=== PATIENT | female | born 1945 | race Caucasian/White ===

== ENCOUNTER 2020-02-21 09:21 | Emergency (ER) | payer MEDICARE ==
--- NOTE | 2020-02-21 10:38 | ER Document Report ---
ED Eye Complaint - General Chief Complaint: Eye Problem Stated Complaint: EYE PAIN Time Seen by Provider: 02/21/20 10:10 Mode of Arrival: Ambulatory Information source: Patient - HPI Notes: Patient complains of left eye pain. She states she woke up this morning and noticed that her eye was swollen and tender. She states is mainly the upper lid. She also states that her face feels "hot". She is noticed she has some blurry vision in the left eye as well. She denies any known injury. No fevers. She has had some yellow-green discharge from this eye as well today. The pain is constant. It is mild to moderate. It is a burning stinging sensation. It radiates over to the medial aspect of her face near her nose. It is worse if touched and better if left alone. - Related Data Allergies/Adverse Reactions: codeine Allergy (Verified 02/21/20 09:32) Home Medications: tramadol prn Past Medical History - General Information source: Patient - Social History Smoking Status: Never Smoker Chew tobacco use (# tins/day): No Frequency of alcohol use: Occasional Drug Abuse: None Family History: Reviewed & Not Pertinent Patient has homicidal ideation: No Past Surgical History: Reports: Hx Appendectomy, Hx Hysterectomy, Hx Orthopedic Surgery - rtkr, Hx Tonsillectomy Review of Systems - Review of Systems Constitutional: denies: Chills, Fever EENT: Eye discharge, Blurred vision Respiratory: denies: Cough, Short of breath Physical Exam - Vital signs Vitals: Temp Pulse Resp BP Pulse Ox 98.3 F 79 16 168/78 H 99 02/21/20 09:27 02/21/20 09:27 02/21/20 09:27 02/21/20 09:27 02/21/20 09:27 Interpretation: Hypertensive - General General appearance: Appears well, Alert - HEENT Head: Normocephalic, Atraumatic Eyes: Periorbital edema, Other - Patient's left upper eyelid is erythematous. She does have some tenderness especially near the medial canthus. There is no conjunctival injection. Extraocular muscles are intact. Pupils equal round reactive to light. She has some yellow-green discharge near the medial canthus. Conjunctiva: No: Injected Cornea: Normal Pupils: PERRL Visual acuity- Right eye: 20/50 Visual acuity- Left eye: 20/50 Visual acuity- Both eyes: 20/40 Corrective lenses worn: Yes - Tri Focal Glasses - Respiratory Respiratory status: No respiratory distress Chest status: Nontender Breath sounds: Normal Chest palpation: Normal - Cardiovascular Rhythm: Regular Heart sounds: Normal auscultation Murmur: No - Extremities General lower extremity: No: Charlie's sign - Neurological Neuro grossly intact: Yes Cognition: Normal Orientation: AAOx4 Avinash Coma Scale Eye Opening: Spontaneous Avinash Coma Scale Verbal: Oriented Avinash Coma Scale Motor: Obeys Commands [place] Coma Scale Total: 15 Speech: Normal Motor strength normal: LUE, RUE, LLE, RLE Sensory: Normal - Psychological Associated symptoms: Normal affect, Normal mood - Skin Skin Temperature: Warm Skin Moisture: Dry Skin Color: Normal - except as noted Course - Re-evaluation Re-evalutation: 02/21/20 10:36 I called and discussed the case with the pearler, Dr. Henderson. He will see the patient immediately. - Vital Signs Vital signs: Temp Pulse Resp BP Pulse Ox 98.3 F 79 16 168/78 H 99 02/21/20 09:33 02/21/20 09:27 02/21/20 09:27 02/21/20 09:27 02/21/20 09:27 Discharge - Discharge Clinical Impression: Blepharitis of eyelid of left eye Qualifiers: Blepharitis type: unspecified type Eyelid: upper Qualified Code(s): H01.004 - Unspecified blepharitis left upper eyelid Condition: Stable Disposition: HOME, SELF-CARE Additional Instructions: go straight to Dr. Rodriguez's office. Referrals: NATIVIDAD RODRIGUEZ DO [ACTIVE STAFF] - 02/21/20 11:00 am
[2020-02-21 11:30] VITALS: BP 155/76
== END 2020-02-21 11:30 | disposition home or self-care (01) ==
LOC: ER 09:21
DX: H01.004 Unspecified blepharitis left upper eyelid (principal); H57.12 Ocular pain, left eye; H53.8 Other visual disturbances; Z88.8 Allergy status to other drugs, medicaments and biological substances
CPT/HCPCS: 99283